=== PATIENT | male | born 1980 | race Caucasian/White ===

== ENCOUNTER 2016-08-02 12:05 | Emergency (ER) | payer OTHER ==
[2016-08-02 12:16] VITALS: BP 123/81
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
== END 2016-08-02 13:58 | disposition home or self-care (01) ==
LOC: UCCORT 12:05
DX: S16.1XXA Strain of muscle, fascia and tendon at neck level, initial encounter (principal); V49.40XA Driver injured in collision with unspecified motor vehicles in traffic accident, initial encounter; Y93.89 Activity, other specified; Y92.410 Unspecified street and highway as the place of occurrence of the external cause
CPT/HCPCS: 72050; 99211; G0463